=== PATIENT | male | born 1995 | race Caucasian/White ===

== ENCOUNTER 2020-03-01 18:29 | Emergency (ER) | payer OTHER, SELFPAY ==
--- NOTE | ~2020-03-01 | XR_ITS ---
Corrected Report This is on a LEFT foot. -BJO XR foot LT 2V DATE: 03/01/2020 19:24 INDICATION: Medial foot pain following injury TECHNIQUE: 2 views COMPARISON: None FINDINGS: No fracture or dislocation, periosteal reaction or bone destruction is evident. Joint spaces are preserved. No erosive changes. IMPRESSION: Negative Reviewed, dictated and finalized at location A. OF HISTORY MTDD IMPRESSION: Negative
[2020-03-01 18:48] VITALS: BP 139/87; PULSE 81; RESP 18; TEMP 37; O2SAT 99
[2020-03-01] MEDS: KETOROLAC (*BKC) 60 MG/2 ML VIAL IM (19:08)
--- NOTE | 2020-03-01 19:28 | ED.LOWEXIN ---
HPI - Extremity Injury (Lower) General Chief Complaint: Extremity Injury, Lower Stated Complaint: Broken foot Source: patient Mode of arrival: ambulatory Limitations: no limitations History of Present Illness HPI Narrative: this is a 4-year-old male that presents with some left lateral foot pain after he jumped onto a hard concrete surface causing pain to the lateral aspect of his left foot, has good range of motion although tender with movement and palpation with no numbness or tingling no lateral or medial malleolus tenderness. Occurred earlier today after he jumped onto a hard concrete surface while at work. Has tried [id number] Tylenol with minimal to moderate relief walked in on crutches is able to bear weight although it is painful and and tender. complaint: foot injury Onset (ago): hour(s) Injury: Left: foot ( Tenderness with palpation and movement) Place: work Severity: moderate Severity scale (1-10): 8 Relieving factors: rest Exacerbating factors: weight bearing and movement Context: jumping Associated symptoms: able to partially bear weight and ambulatory Related Data Home Medications Medication Instructions Recorded Confirmed No Home Medications 03/01/20 03/01/20 Allergies Allergy/AdvReac Type Severity Reaction Status Date / Time No Known Allergies Allergy Verified 03/01/20 18:47 Review of Systems Review of Systems: All systems reviewed & are unremarkable except as noted in HPI and below PMFSH Past Medical History Medical History Patient denies medical problems Exam Const: General: no acute distress and alert Orientation/consciousness: patient oriented x3 HENMT: Head: normal to inspection Eyes: Conjunctivae: conjunctivae normal Pupils: Equal, round and reactive pupils present EOM: EOMs intact bilaterally Direct Ophthalmoscopy: no photophobia Neck: Neck: normal visual inspection Chest: Chest palpation & inspection: normal inspection of the chest Resp: Auscultation: clear to auscultation bilaterally Cardio: Rate: regular rate Rhythm: regular rhythm : Testes: Testes normal Skin: General skin exam: normal color Rashes: no rashes Neuro: General: patient oriented x3, moves all extremities and no focal motor deficits Extrem: Other: tenderness lateral aspect of his left foot palpation Psych: Appearance: grossly normal Mental Status: mental status grossly normal Affect: normal affect Attitude: cooperative Course Course Emergency Course: patient received IM Toradol and after reassessment pain is some moderate relieved from a take down to about a 4. Vital Signs Vital signs: Vital Signs Temperature 37.0 C 03/01/20 18:48 Pulse Rate 81 03/01/20 18:48 Respiratory Rate 18 03/01/20 18:48 Blood Pressure 139/87 03/01/20 18:48 Pulse Oximetry 99 03/01/20 18:48 Temperature 37.0 C 03/01/20 18:48 Pulse Rate 81 03/01/20 18:48 Respiratory Rate 18 03/01/20 18:48 Blood Pressure 139/87 03/01/20 18:48 Pulse Oximetry 99 03/01/20 18:48 Critical Care Time Critical Care Time Critical Care Time: No Discharge Plan Discharge Clinical Impression: Ankle sprain and strain Patient Disposition: Home, Self-Care Condition: Stable Instructions: Antibiotic Form, Foot Sprain (ED) Additional Instructions: Take medicine as prescribed, continue Kody wrap, rest elevation can use ice to affected foot and follow-up with primary care physician if symptoms persist or worsen. Prescriptions: No Action No Home Medications RF: 0 Follow-up/Referrals: Edgar Maciel M.D. [Primary Care Provider] - Stand Alone Forms: Work/School Release IP Time of Disposition: 20:09
== END 2020-03-01 20:20 | disposition home or self-care (01) ==
PROVIDERS: Emergency Provider Emergency Medicine; PCP Family Medicine
DX: S93.402A Sprain of unspecified ligament of left ankle, initial encounter (principal)
CPT/HCPCS: 73620; 96372; 99283; J1885

== ENCOUNTER 2024-07-30 11:32 | Outpatient (CLI) | payer OTHER, SELFPAY ==
--- NOTE | ~2024-07-30 | XR_ITS ---
Lumbosacral Spine: AP and lateral views Clinical History: Pain Findings: The normal lordotic curve is maintained. The vertebral bodies and posterior elements are i ntact. The intervertebral disc spaces are preserved. The sacroiliac joints are normally outlined. Impression: No significant abnormality. Reviewed, dictated and finalized at [facility]. Impression: No significant abnormality.
--- NOTE | ~2024-07-30 | XR_ITS ---
Cervical Spine: AP, lateral, open-mouth views Clinical History: Pain Findings: The normal lordotic curve is maintained. The vertebral bodies and posterior elements appea r intact. The intervertebral disc spaces are well maintained. Mild facet joint degenerative changes are present. Pre-vertebral soft tissues are unremarkable. Impression: Mild facet joint degenerative changes. Reviewed, dictated and finalized at location . Impression: Mild facet joint degenerative changes.
--- NOTE | ~2024-07-30 | XR_ITS ---
Thoracic spine: Clinical Indication: Back pain AP and lateral views were performed. Probable mild chronic loss of height of T10 and T11. The intervertebral disc spaces appear normal. Pa ravertebral soft tissues appear normal. Impression: Probable mild chronic loss of height at T10 and T11. Reviewed, dictated and finalized at [facility]. Impression: Probable mild chronic loss of height at T10 and T11.
--- OUTSIDE RECORDS SUMMARY | 2024-07-30 11:38 | XMS_ITS | Encounter Summary ---
Author Organization [facility] Address [facility] [place] [address] Care Team Providers Care Engineering Team Supervisor Name Role Phone Edgar Maciel MD Primary Care Provider Zack Batista MD Primary Care Provider Encounter Details Date Type Department Care Team (Late st Contact Info) Description 09/25/2018 Abstract SFL CONVERSION [address] [place] [address] , Generic Conversion, Social History Tobacco Use Types Packs/Day Years Used Date Smoking Tobacco: Never Assessed Sex and Gender Information Value Date Recorded Sex Assigned at Not on file 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
--- OUTSIDE RECORDS SUMMARY | 2024-07-30 11:38 | XMS_ITS | Clinical Summary ---
Author Organization [facility] Address [address] [place] [address] Care Team Providers Care Clerical Methods Analyst Name Role Phone Zack Batista MD Primary Care Provider Allergies No known active allergies Medications traMADol (ULTRAM) 50 MG tabletIndicatio ns:Acute Pain < 7 Day Supply Indications: Acute Pain < 7 Day Supply 1-2 every 6 hours as needed for pain 20 tablet 12/03/2022 Active HYDROcodone-dane taminophen (NORCO) 5-325 MG tabletIndicatio ns:Acute Pain < 7 Day Supply Take 1-2 tablets by mouth every 6 (six) hours as needed. 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 Gender Identity Not on file Sexual Orientation Not on file Last Filed Vital Signs Vital Sign Reading Time Taken Comments Blood Pressure 136/76 02/27/2023 4:34 PM AUDIO TAPE LIBRARIAN Pulse 62 02/27/2023 4:34 PM AUDIO TAPE LIBRARIAN Temperature 36.6 C (97.8 F) 02/27/2023 4:34 PM AUDIO TAPE LIBRARIAN Respiratory Rate 18 02/27/2023 4:34 PM AUDIO TAPE LIBRARIAN Oxygen Saturation 100% 02/27/2023 4:34 PM AUDIO TAPE LIBRARIAN Inhaled Oxygen Concentration - - Weight 65.8 kg (145 lb) 02/27/2023 4:34 PM AUDIO TAPE LIBRARIAN Height 175.3 cm (5' 9 ) 02/27/2023 4:34 PM AUDIO TAPE LIBRARIAN Body Mass Index 21.41 02/27/2023 4:34 PM AUDIO TAPE LIBRARIAN Plan of Treatment Health Maintenance Due Date Last Done Comments Annual Physical 1997 Pneumococcal Vaccine: Pediatrics (0 to 5 Years) and At-Risk Patients (6 to 64 Years) (1 of 2 - PCV) 2000 Hepatitis C 2012 DTaP, Tdap and Td Vaccines (2 - Td or Tdap) 12/26/2019 12/25/2009, 01/05/1996, 1994, Additional history exists COVID-19 Vaccine () 12/20/2023 Hepatitis B Vaccines Completed 01/06/1995, 1994, 1994 HPV Vaccines Aged Out No longer eligi ble based on patient's age to complete this topic Meningococcal B Vaccine Aged Out No l onger eligible based on patient's age to complete this topic Meningococcal Vaccine Aged Out No mendoza dain eligible based on patient's age to complete this topic RSV Immunizations Under 20 Months Aged Out No longer eligible based on patient's age to complete this topic Insurance [facility] [place] [facility] Care Teams Clerical Methods Analyst Relationship Specialty Start Date End Date Zack Batista MD [address] [place] [phone] PCP - General FAMILY PRACTICE 12/03/22
== END 2024-07-30 11:33 | disposition home or self-care (01) ==
LOC: CHSIMG 11:36
PROVIDERS: PCP Physician Assistant; Visit Provider Physician Assistant
DX: M54.9 Dorsalgia, unspecified (principal)
CPT/HCPCS: 72040; 72072; 72100

== ENCOUNTER 2024-09-06 12:19 | Outpatient (CLI) | payer OTHER, MEDICAID, SELFPAY ==
--- NOTE | ~2024-09-06 | US_ITS ---
EXAMINATION: US renal BI DATE: 09/06/2024 12:44 INDICATION: Cyst of the kidneys TECHNIQUE: Multiple grayscale and Doppler ultrasound images of the kidneys were obtained. COMPARISON: None. FINDINGS: The right kidney measures 12.8 x 5.5 x 6.1 cm. The left kidney measures 15.0 x 6.1 x 7.7 cm. The kidn eys demonstrate normal parenchymal echogenicity. Multiple simple and complex cystic lesions are prese nt in the kidneys bilaterally. The largest cyst on the right is simple and measures up to 2.8 cm. The largest cyst on the left also appears simple and measures up to 2.7 cm. There is no hydronephrosis. The bladder is normal. IMPRESSION: Enlarged bilateral kidneys, with multiple simple and complex cystic lesions. Consider MRI or CT witho ut and with contrast for more definitive characterization. Reviewed, dictated and finalized at location K. IMPRESSION: Enlarged bilateral kidneys, with multiple simple and complex cystic lesions. Co nsider MRI or CT without and with contrast for more definitive characterization .
--- OUTSIDE RECORDS SUMMARY | 2024-09-06 12:24 | XMS_ITS | Clinical Summary ---
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 Gender Identity Not on file Sexual Orientation Not on file Last Filed Vital Signs Vital Sign Reading Time Taken Comments Blood Pressure 136/76 02/27/2023 4:34 PM EARTH SCIENCE PROFESSOR Pulse 62 02/27/2023 4:34 PM EARTH SCIENCE PROFESSOR Temperature 36.6 C (97.8 F) 02/27/2023 4:34 PM EARTH SCIENCE PROFESSOR Respiratory Rate 18 02/27/2023 4:34 PM EARTH SCIENCE PROFESSOR Oxygen Saturation 100% 02/27/2023 4:34 PM EARTH SCIENCE PROFESSOR Inhaled Oxygen Concentration - - Weight 65.8 kg (145 lb) 02/27/2023 4:34 PM EARTH SCIENCE PROFESSOR Height 175.3 cm (5' 9 ) 02/27/2023 4:34 PM EARTH SCIENCE PROFESSOR Body Mass Index 21.41 02/27/2023 4:34 PM EARTH SCIENCE PROFESSOR Plan of Treatment Health Maintenance Due Date Last Done Comments Annual Physical 1997 Hepatitis C 2012 Pneumococcal Vaccine: Pediatrics (0 to 5 Years) and At-Risk Patients (6 to 49 Years) (1 of 2 - PCV) 2013 DTaP, Tdap and Td Vaccines (2 - Td or Tdap) 12/26/2019 12/25/2009, 01/05/1996, 1994, Additional history exists COVID-19 Vaccine ( season) 2023 Hepatitis B Vaccines Completed 01/06/1995, 1994, 1994 HPV Vaccines Aged Out No longer eligi ble based on patient's age to complete this topic Meningococcal B Vaccine Aged Out No l onger eligible based on patient's age to complete this topic Meningococcal Vaccine Aged Out No mendoaz dain eligible based on patient's age to complete this topic RSV Immunizations Under 20 Months Aged Out No longer eligible based on patient's age to complete this topic Insurance [facility] [place] [facility] Care Teams Soap Chipper Relationship Specialty Start Date End Date Zack Batista MD [address] [place] [phone] PCP - General FAMILY PRACTICE 12/03/22
--- OUTSIDE RECORDS SUMMARY | 2024-09-06 12:24 | XMS_ITS | Encounter Summary ---
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
== END 2024-09-06 12:20 | disposition home or self-care (01) ==
PROVIDERS: PCP Physician Assistant; Visit Provider Physician Assistant
DX: Q61.3 Polycystic kidney, unspecified (principal)
CPT/HCPCS: 76775

== ENCOUNTER 2024-09-17 10:46 | Outpatient (CLI) | payer MEDICAID, SELFPAY ==
--- NOTE | ~2024-09-17 | MR_ITS ---
MRI of the abdomen: Clinical indication: Polycystic kidney disease. Technique: Coronal SSFSE ARC, WATER:coronal LAVA-FLEX, Coronal 2D FIESTA FatSat, Axial SSFSE BH ARC, Axial 3D DualEcho BH, Axial SSFSE-IR, Axial DWI b=500, Axial 2D FIESTA FatSat, pre and dynamic postco ntrast Axial LAVA ARC, postcontrast Coronal In and Opposed phase LAVA FLEX Following intravenous admi nistration of 14 cc MultiHance gadolinium, T1-weighted fat-sat imaging was performed in the axial and coronal planes. . Findings: Gallbladder unremarkable. The common bile duct is normal in course and caliber. No filling defects are seen within the CBD. No evidence of intrahepatic biliary ductal dilatation. The pancreati c duct is normal in size. Liver, spleen, pancreas, and adrenal glands appear normal. Innumerable bilateral renal cysts are pres ent including a few hemorrhagic/proteinaceous cysts. No hydronephrosis. No suspicious renal lesion. T he aorta and the paraaortic regions appear normal. Impression: Innumerable bilateral renal cysts, as detailed above. No overtly suspicious renal lesion identified. Reviewed, dictated and finalized at location . Impression: Innumerable bilateral renal cysts, as detailed above. No overtly suspicious madhavi al lesion identified.
== END 2024-09-17 10:47 | disposition home or self-care (01) ==
PROVIDERS: PCP Physician Assistant; Visit Provider Physician Assistant
DX: R93.89 Abnormal findings on diagnostic imaging of other specified body structures (principal)
CPT/HCPCS: 74183